=== PATIENT | female | born 1955 | race Caucasian/White ===

== ENCOUNTER 2018-07-24 14:11 | Day surgery (SDC) | payer OTHER ==
[~2018-07-24] VITALS: Ht 149.9 cm; Wt 48.6 kg
[~2018-07-24 14:11] MED LIST: AMLO5 PO; ATEN100 PO; CEPH500 PO; HYDACE5325 PO; HYDCHL25 PO; LISI20 PO; PARO20 PO
== END 2018-07-24 14:29 | disposition home or self-care (01) ==
LOC: ORSCSDS 14:11
PROVIDERS: Surgery
PROC: 0DBN8ZX Excision of Sigmoid Colon, Via Natural or Artificial Opening Endoscopic, Diagnostic (ICD-10-PCS; principal; 2018-07-24 15:30)
DX: Z12.11 Encounter for screening for malignant neoplasm of colon (principal); D12.5 Benign neoplasm of sigmoid colon; Z86.010 Personal history of colon polyps; Z80.0 Family history of malignant neoplasm of digestive organs; F32.9 Major depressive disorder, single episode, unspecified; Z87.891 Personal history of nicotine dependence; Z79.82 Long term (current) use of aspirin; Z79.899 Other long term (current) drug therapy
CPT/HCPCS: J7120

== ENCOUNTER → 2021-01-08 | Outpatient (CLI) | payer OTHER | END | disposition home or self-care (01) | LOC: LAB SHORT 11:20 → LAB 11:20 | DX: R30.9 Painful micturition, unspecified (principal) | CPT/HCPCS: 87077; 87086; 87186 ==

== ENCOUNTER 2025-11-11 08:31 | Day surgery (SDC) | payer OTHER ==
[~2025-11-11] VITALS: Ht 149.9 cm; Wt 47.3 kg
[2025-11-11] VITALS (21 sets, daily range): BP systolic 83–159; BP diastolic 65–100
[~2025-11-11 08:31] MED LIST changes: +ALEN70 PO; +GABA400 PO; +HYDHCL25 PO; +MULVITA PO
--- NOTE | 2025-11-11 09:36 | NUR ---
11/11/25 0936 Soren Falk CONFIRMED AND REVIEWED H&P, MEDCICATIONS, ALLERGIES, MEDICAL HISTORY, RESPIRATORY HISTORY, VITAL SIGNS, 3-LEAD EKG, CONSENTS, AND PHYSICIAN ORDERS. PATIENT CONFIRMS NPO STATUS AND AGREES WITH SCHEDULED PROCEDURE. MONITOR INTACT WITH CONTINUOUS PULSE OXIMETRY, CAPNOGRAPHY, 3-LEAD EKG, INTERMITTENT BP. SUPPLEMENTAL O2 TO BE TITRATED THROUGHOUT PROCEDURE TO MAINTAIN O2 SATURATION ABOVE 90%. PATIENT DETERMINED TO BE ASA APPROPRIATE FOR PROPOFOL SEDATION PRIOR TO START OF PROCEDURE BY DR. LIEBERMAN.
--- NOTE | 2025-11-11 10:36 | NUR ---
TO STEP POST PROCEDURE. DENIES PAIN, NAUSEA, SOB. GOVIND PO WELL. DC'D IV INTACT. DRESSED AT BEDSIDE. DC'D VIA WC TO PRIVATE CAR WITH INSURANCE ACCOUNT MANAGER.
== END 2025-11-11 10:38 | disposition home or self-care (01) ==
LOC: ORSCMMR 08:31 → ORD 09:45 → ORSCMMR 09:45
PROVIDERS: Surgery
PROC: 0DBN8ZX Excision of Sigmoid Colon, Via Natural or Artificial Opening Endoscopic, Diagnostic (ICD-10-PCS; principal; 2025-11-11 09:45)
PROC: 0DBK8ZX Excision of Ascending Colon, Via Natural or Artificial Opening Endoscopic, Diagnostic (ICD-10-PCS; principal; 2025-11-11 09:45)
DX: Z12.11 Encounter for screening for malignant neoplasm of colon (principal); Z86.0101 Personal history of adenomatous and serrated colon polyps; Z80.0 Family history of malignant neoplasm of digestive organs; D12.2 Benign neoplasm of ascending colon; D12.5 Benign neoplasm of sigmoid colon; E78.5 Hyperlipidemia, unspecified; I10 Essential (primary) hypertension; F41.9 Anxiety disorder, unspecified; Z79.899 Other long term (current) drug therapy
CPT/HCPCS: 88305; J2704; J7120